=== PATIENT | male | born 1990 | race Caucasian/White ===

== ENCOUNTER 2018-12-29 13:29 | Emergency (ER) | payer SELFPAY ==
--- NOTE | 2018-12-29 14:18 | EDM.PDOC ---
ED HPI GENERAL MEDICAL PROBLEM - General Chief Complaint: General Stated Complaint: MEDICAL VIA [facility] Time Seen by Provider: 12/29/18 14:17 Source of Information: Reports: Patient History Limitations: Reports: No Limitations - History of Present Illness INITIAL COMMENTS - FREE TEXT/NARRATIVE: pt arrived stating [facility] and he did not come out of the room. He was checked by housekeeping and they could not arouse the pt. He had used Meth and he had taking a unkown amount of lyrica. Onset: Today Duration: Hour(s): Location: Reports: Generalized Associated Symptoms: Reports: No Other Symptoms - Related Data Allergies Allergy/AdvReac Type Severity Reaction Status Date / Time No Known Allergies Allergy Verified 12/29/18 13:37 Home Meds: Home Meds NK [No Known Home Meds] 05/16/13 [History] Past Medical History - Past Health History Medical/Surgical History: Denies Medical/Surgical History Social & Family History - Tobacco Use Smoking Status *Q: Current Every Day Smoker Years of Tobacco use: 12 Packs/Tins Daily: 1 - Caffeine Use Caffeine Use: Reports: Coffee, Soda, Tea - Recreational Drug Use Recreational Drug Use: Yes Drug Use in Last 12 Months: Yes Recreational Drug Type: Reports: Marijuana/Hashish, Methamphetamine Recreational Drug Use Frequency: Weekly ED ROS GENERAL - Review of Systems Review Of Systems: See Below Constitutional: Reports: No Symptoms HEENT: Reports: No Symptoms Respiratory: Reports: No Symptoms Cardiovascular: Reports: No Symptoms Endocrine: Reports: No Symptoms GI/Abdominal: Reports: No Symptoms : Reports: No Symptoms Musculoskeletal: Reports: No Symptoms Skin: Reports: No Symptoms Neurological: Reports: No Symptoms Psychiatric: Reports: Anxiety ED EXAM, GENERAL - Physical Exam Exam: See Below Free Text/Narrative:: pt arrived stating that he was feeling slightly dizzy He had taken a lyrica of unknown dose. He did not try to harm himself. Exam Limited By: No Limitations General Appearance: Alert, Anxious, Other (pupils equal and reactuive. ) Ears: Normal External Exam, Normal TMs Nose: Normal Inspection Throat/Mouth: Normal Inspection Head: Atraumatic Neck: Normal Inspection Respiratory/Chest: No Respiratory Distress Cardiovascular: Regular Rate, Rhythm GI/Abdominal: Soft, Non-Tender (Male) Exam: Deferred Rectal (Males) Exam: Deferred Back Exam: Normal Inspection Extremities: Normal Inspection Neurological: Alert, Oriented Psychiatric: Anxious Course - Vital Signs Last Recorded V/S: Last Vital Signs Temp 35.9 C 12/29/18 13:36 Pulse 95 12/29/18 13:36 Resp 22 H 12/29/18 13:31 BP 160/105 H 12/29/18 13:36 Pulse Ox 98 12/29/18 13:31 - Orders/Labs/Meds Labs: Laboratory Tests 12/29/18 12/29/18 12/29/18 Range/Units 14:05 14:05 14:05 WBC 6.7 (4.5-11.0) K/uL RBC 4.44 (4.30-5.90) M/uL Hgb 14.4 (12.0-15.0) g/dL Hct 42.2 (40.0-54.0) % MCV 95 (80-98) fL MCH 32 H (27-31) pg MCHC 34 (32-36) % Plt Count 281 (150-400) K/uL Neut % (Auto) 50 (36-66) % Lymph % (Auto) 36 (24-44) % [place] % (Auto) 11 H (2-6) % Eos % (Auto) 2 (2-4) % Baso % (Auto) 1 (0-1) % Sodium 142 (140-148) mmol/L Potassium 3.5 L (3.6-5.2) mmol/L Chloride 105 (100-108) mmol/L Carbon Dioxide 27 (21-32) mmol/L Anion Gap 13.5 (5.0-14.0) mmol/L BUN 10 (7-18) mg/dL Creatinine 0.8 (0.8-1.3) mg/dL Est Cr Clr Drug Dosing 177.58 mL/min Estimated GFR (MDRD) > 60 (>60) Glucose 102 (74-106) mg/dL Calcium 9.2 (8.5-10.1) mg/dL Total Bilirubin 0.8 D (0.2-1.0) mg/dL AST 22 (15-37) U/L ALT 25 (12-78) U/L Alkaline Phosphatase 67 (46-116) U/L Total Protein 7.3 (6.4-8.2) g/dL Albumin 4.0 (3.4-5.0) g/dL Globulin 3.3 (2.3-3.5) g/dL Albumin/Globulin Ratio 1.2 (1.2-2.2) Urine Color (YELLOW) Urine Appearance (CLEAR) Urine pH (5.0-8.0) Ur Specific [place] (1.008-1.030) Urine Protein (NEGATIVE) mg/dL Urine Glucose (UA) (NEGATIVE) mg/dL Urine Ketones (NEGATIVE) mg/dL Urine Occult Blood (NEGATIVE) Urine Nitrite (NEGATIVE) Urine Bilirubin (NEGATIVE) Urine Urobilinogen (0.2-1.0) EU/dL Ur Leukocyte Esterase (NEGATIVE) Urine RBC (0-5) Urine WBC (0-5) Ur Epithelial Cells Amorphous Sediment Urine Bacteria Urine Mucus Urine Opiates Screen (NEGATIVE) Ur Oxycodone Screen (NEGATIVE) Urine Methadone Screen (NEGATIVE) Ur Propoxyphene Screen (NEGATIVE) Ur Barbiturates Screen (NEGATIVE) Ur Tricyclics Screen (NEGATIVE) Ur Phencyclidine Scrn (NEGATIVE) Ur Amphetamine Screen (NEGATIVE) U Methamphetamines Scrn (NEGATIVE) Urine MDMA Screen (NEGATIVE) U Benzodiazepines Scrn (NEGATIVE) U Cocaine Metab Screen (NEGATIVE) U Marijuana (THC) Screen (NEGATIVE) Ethyl Alcohol < 3 mg/dL 12/29/18 12/29/18 Range/Units 14:21 14:21 WBC (4.5-11.0) K/uL RBC (4.30-5.90) M/uL Hgb (12.0-15.0) g/dL Hct (40.0-54.0) % MCV (80-98) fL MCH (27-31) pg MCHC (32-36) % Plt Count (150-400) K/uL Neut % (Auto) (36-66) % Lymph % (Auto) (24-44) % [place] % (Auto) (2-6) % Eos % (Auto) (2-4) % Baso % (Auto) (0-1) % Sodium (140-148) mmol/L Potassium (3.6-5.2) mmol/L Chloride (100-108) mmol/L Carbon Dioxide (21-32) mmol/L Anion Gap (5.0-14.0) mmol/L BUN (7-18) mg/dL Creatinine (0.8-1.3) mg/dL Est Cr Clr Drug Dosing mL/min Estimated GFR (MDRD) (>60) Glucose (74-106) mg/dL Calcium (8.5-10.1) mg/dL Total Bilirubin (0.2-1.0) mg/dL AST (15-37) U/L ALT (12-78) U/L Alkaline Phosphatase (46-116) U/L Total Protein (6.4-8.2) g/dL Albumin (3.4-5.0) g/dL Globulin (2.3-3.5) g/dL Albumin/Globulin Ratio (1.2-2.2) Urine Color Yellow (YELLOW) Urine Appearance Slightly cloudy A (CLEAR) Urine pH 7.0 (5.0-8.0) Ur Specific [place] 1.015 (1.008-1.030) Urine Protein Negative (NEGATIVE) mg/dL Urine Glucose (UA) Negative (NEGATIVE) mg/dL Urine Ketones Trace H (NEGATIVE) mg/dL Urine Occult Blood Trace-intact H (NEGATIVE) Urine Nitrite Negative (NEGATIVE) Urine Bilirubin Negative (NEGATIVE) Urine Urobilinogen 0.2 (0.2-1.0) EU/dL Ur Leukocyte Esterase Trace H (NEGATIVE) Urine RBC 0-5 (0-5) Urine WBC 5-10 H (0-5) Ur Epithelial Cells Rare Amorphous Sediment Not seen Urine Bacteria Rare Urine Mucus Not seen Urine Opiates Screen Negative (NEGATIVE) Ur Oxycodone Screen Negative (NEGATIVE) Urine Methadone Screen Negative (NEGATIVE) Ur Propoxyphene Screen Negative (NEGATIVE) Ur Barbiturates Screen Negative (NEGATIVE) Ur Tricyclics Screen Negative (NEGATIVE) Ur Phencyclidine Scrn Negative (NEGATIVE) Ur Amphetamine Screen Presumptive positive H (NEGATIVE) U Methamphetamines Scrn Presumptive positive H (NEGATIVE) Urine MDMA Screen Negative (NEGATIVE) U Benzodiazepines Scrn Negative (NEGATIVE) U Cocaine Metab Screen Negative (NEGATIVE) U Marijuana (THC) Screen Negative (NEGATIVE) Ethyl Alcohol mg/dL - Re-Assessments/Exams Free Text/Narrative Re-Assessment/Exam: 12/29/18 14:52 pt had a positive drug screen for meth. His labs otherwise were normal. Departure - Departure Time of Disposition: 14:46 Disposition: Home, Self-Care 01 Condition: Fair Clinical Impression: Methamphetamine abuse, Adverse drug effect - Discharge Information Referrals: PCP,None [Primary Care Provider] - Forms: ED Department Discharge Care Plan Goals: push fluids. reccommend efforts to get off of meth.
== END 2018-12-29 14:54 | disposition home or self-care (01) ==
LOC: JP.ED 13:29
DX: F41.9 Anxiety disorder, unspecified (principal); T43.625A Adverse effect of amphetamines, initial encounter; F17.210 Nicotine dependence, cigarettes, uncomplicated
CPT/HCPCS: 36415; 80053; 80305-QW; 81001; 85025; 99283; 99284; G0480

== ENCOUNTER 2019-02-14 11:48 | Emergency (ER) | payer MEDICAID, OTHER ==
--- NOTE | 2019-02-14 13:06 | EDM.PDOC ---
ED HPI GENERAL MEDICAL PROBLEM - General Chief Complaint: ENT Problem Stated Complaint: L SIDE TOOTH PAIN Time Seen by Provider: 02/14/19 13:06 Source of Information: Reports: Patient History Limitations: Reports: No Limitations - History of Present Illness INITIAL COMMENTS - FREE TEXT/NARRATIVE: 28 years old male patient presented with a chief complaint of left-sided toothache has been going on for 4 or 5 days. Worse today. He lost the left upper tooth 4 days ago and since then pain has been getting worse. No discharge. Denies any fever. Denies any difficulty swallowing. No chest pain shortness breath. No facial swelling. - Related Data Allergies Allergy/AdvReac Type Severity Reaction Status Date / Time No Known Allergies Allergy Verified 02/14/19 13:01 Home Meds: Home Meds NK [No Known Home Meds] 05/16/13 [History] Past Medical History - Past Health History Medical/Surgical History: Denies Medical/Surgical History Social & Family History - Tobacco Use Smoking Status *Q: Current Every Day Smoker Years of Tobacco use: 15 Packs/Tins Daily: 0.5 - Caffeine Use Caffeine Use: Reports: Coffee, Soda, Tea ED ROS GENERAL - Review of Systems Review Of Systems: Comprehensive ROS is negative, except as noted in HPI. ED EXAM, DIZZINESS - Physical Exam Exam: See Below Exam Limited By: No Limitations General Appearance: Alert, WD/WN, No Apparent Distress Throat/Mouth: Normal Inspection, Normal Lips, Normal Teeth, Normal Gums, Normal Oropharynx, Normal Voice, No Airway Compromise, Other (Gum erythema and swelling at tooth #2 and 17. No discharge. No abscess. Dental caries) Head Exam: Atraumatic, Normocephalic Neck: Normal Inspection, Supple, Non-Tender, Full Range of Motion Respiratory/Chest: No Respiratory Distress, Lungs Clear, Normal Breath Sounds, No Accessory Muscle Use, Chest Non-Tender Cardiovascular: Normal Peripheral Pulses, Regular Rate, Rhythm, No Edema, No Gallop, No JVD, No Murmur, No Rub GI/Abdominal: Normal Bowel Sounds, Soft, Non-Tender, No Organomegaly, No Distention, No Abnormal Bruit, No Mass Neurological: Alert, Normal Mood/Affect, Normal Dorsiflexion, CN II-XII Intact, Normal Plantar Flexion, Normal Gait, Normal Reflexes, No Motor/Sensory Deficits , Oriented x 3 Course - Vital Signs Last Recorded V/S: Last Vital Signs Temp 36.7 C 02/14/19 13:05 Pulse 108 H 02/14/19 13:05 Resp 15 02/14/19 13:05 BP 119/81 02/14/19 13:05 Pulse Ox 99 02/14/19 13:05 - Orders/Labs/Meds Meds: Medications Discontinued Medications Generic Name Dose Route Start Last Admin Trade Name Luther PRN Reason Stop Dose Admin Ketorolac Tromethamine 60 mg 02/14/19 13:14 Toradol IM 02/14/19 13:15 ONETIME ONE - Radiology Interpretation Free Text/Narrative:: Patient was seen and examined shortly after arrival. Stable. Given 60 mg IM Toradol. Also started on amoxicillin. Advised to rest, hydration, gargle with salt and water, Orajel, alternate Tylenol and ibuprofen for pain and discomfort , see a dentist as soon as possible, close follow-up with PCP, come back for any concern or any worsening symptom. Patient agrees with the plan. Stable for discharge. Departure - Departure Time of Disposition: 13:18 Disposition: Home, Self-Care 01 Condition: Good Clinical Impression: Toothache, Dental caries - Discharge Information Referrals: PCP,None [Primary Care Provider] - Forms: ED Department Discharge Additional Instructions: Advised to rest, hydration, gargle with salt and water, Orajel, alternate Tylenol and ibuprofen for pain and discomfort, see a dentist as soon as possible , close follow-up with PCP, come back for any concern or any worsening symptom. Sepsis Event Note - Evaluation Sepsis Screening Result: No Definite Risk - Focused Exam Vital Signs: Vital Signs Temp Pulse Resp BP Pulse Ox 02/14/19 13:05 36.7 C 108 H 15 119/81 99 02/14/19 12:57 36.7 C 108 H 15 119/81 99 Date Exam was Performed: 02/14/19 Time Exam was Performed: 13:15 - Assessment/Plan Plan: Advised to rest, hydration, gargle with salt and water, Orajel, alternate Tylenol and ibuprofen for pain and discomfort, see a dentist as soon as possible , close follow-up with PCP, come back for any concern or any worsening symptom.
[2019-02-14] MEDS ORDERED: Ketorolac 60 MG/2 ML SDV IM ONE (13:14)
== END 2019-02-14 13:28 | disposition home or self-care (01) ==
LOC: JP.ED 11:48
DX: K02.9 Dental caries, unspecified (principal); F17.210 Nicotine dependence, cigarettes, uncomplicated
CPT/HCPCS: 96372; 99283; J1885

== ENCOUNTER 2019-06-05 03:45 | Emergency (ER) | payer MEDICAID ==
[2019-06-05] MEDS ORDERED: Clindamycin HCl 150 MG Cap PO ONE (04:36)
--- NOTE | 2019-06-05 04:43 | EDM.PDOC ---
ED HPI GENERAL MEDICAL PROBLEM - General Chief Complaint: ENT Problem Stated Complaint: UPPER LT TOOTH PAIN Time Seen by Provider: 06/05/19 04:10 Source of Information: Reports: Patient History Limitations: Reports: No Limitations - History of Present Illness Onset: Today, Other (Had onset of much worse pain today but the patient has had multiple episodes of dental infections in the past) Duration: Getting Worse Location: Reports: Head, Face Quality: Reports: Sharp, Throbbing Severity: Severe Improves with: Reports: Medication (Been using Tylenol and ibuprofen at home) Worsens with: Reports: None Treatments MEDICAL BILLING COORDINATOR: Reports: Acetaminophen, NSAIDS Left Cheek Pain Score (Numeric/FACES): 8 - Related Data Allergies Allergy/AdvReac Type Severity Reaction Status Date / Time No Known Allergies Allergy Verified 06/05/19 03:59 Home Meds: Home Meds NK [No Known Home Meds] 05/16/13 [History] Past Medical History - Past Health History Medical/Surgical History: Denies Medical/Surgical History HEENT History: Reports: Other (See Below) (Dental decay. Dental infections) Social & Family History - Tobacco Use Smoking Status *Q: Current Every Day Smoker Years of Tobacco use: 15 Packs/Tins Daily: 1 - Caffeine Use Caffeine Use: Reports: Coffee, Soda - Recreational Drug Use Recreational Drug Use: Yes Recreational Drug Type: Reports: Methamphetamine ED ROS ENT - Review of Systems Review Of Systems: See Below Constitutional: Reports: Decreased Appetite. Denies: Fever HEENT: Reports: Other (Left facial pain and swelling) Respiratory: Denies: Shortness of Breath Cardiovascular: Denies: Chest Pain GI/Abdominal: Denies: Abdominal Pain, Nausea, Vomiting Neurological: Denies: Confusion, Trouble Speaking ED EXAM, ENT - Physical Exam Exam: See Below Nose: Normal Inspection Mouth/Throat: Normal Gums, Dental Tenderness, Dry Mucous Membrane, Other ( Extensive caries and broken teeth. Left upper gums markedly erythematous and swollen). No: Throat Pain, Throat Swelling Head: Other (Obvious left facial swelling with loss of left nasolabial fold. Palpation of left cheek does not reveal any well-defined mass or erythema.) Neck: Normal Inspection. No: Lymphadenopathy (R), Lymphadenopathy (L) Respiratory/Chest: No Respiratory Distress, Normal Breath Sounds, No Accessory Muscle Use Psychiatric: Anxious Skin: Warm, Dry Lymphatic: No Adenopathy Course - Vital Signs Text/Narrative:: Given an initial dose of clindamycin here in the emergency department. I strongly emphasized the patient the importance of follow-up with the dentist, that if he doesn't get dental work performed these abscesses will basically be recurrent for him and patient seems to understand this. Last Recorded V/S: Last Vital Signs Temp 35.5 C L 06/05/19 03:56 Pulse 78 06/05/19 03:56 Resp 16 06/05/19 03:56 BP 131/79 06/05/19 03:56 Pulse Ox 97 06/05/19 03:56 - Orders/Labs/Meds Orders: Active Orders 24 hr Category Date Time Status clindamycin HCL [Cleocin] Med 06/05/19 04:36 Once 150 mg PO ONETIME ONE Departure - Departure Time of Disposition: 04:50 Disposition: Home, Self-Care 01 Condition: Good Clinical Impression: Cellulitis of external cheek, left, Dental abscess - Discharge Information Instructions: Dental Abscess, [id number], Cellulitis, Adult, [id number] Referrals: PCP,None [Primary Care Provider] - Additional Instructions: Finish entire 10 days of clindamycin antibiotic. You must see a dentist in order to have your teeth cared for for these infections we'll just continue. Utilize ibuprofen, but no more than 600 mg orally 3 times a day. Take ibuprofen with food. You can utilize up to 4000 mg per day of acetaminophen but be aware that Tylenol No. 3 has acetaminophen in it. Sepsis Event Note - Evaluation Sepsis Screening Result: No Definite Risk - Focused Exam Vital Signs: Vital Signs Temp Pulse Resp BP Pulse Ox 06/05/19 03:56 35.5 C L 78 16 131/79 97 Date Exam was Performed: 06/05/19 Time Exam was Performed: 04:38 - My Orders Last 24 Hours: My Active Orders 06/05/19 04:36 clindamycin HCL [Cleocin] 150 mg PO ONETIME ONE - Assessment/Plan Last 24 Hours: My Active Orders 06/05/19 04:36 clindamycin HCL [Cleocin] 150 mg PO ONETIME ONE
[2019-06-05] MEDS ORDERED: Acetaminophen/Codeine 300-30 MG Tab PO ONE (04:59)
== END 2019-06-05 05:13 | disposition home or self-care (01) ==
LOC: JP.ED 03:45
DX: L03.211 Cellulitis of face (principal); K04.7 Periapical abscess without sinus; F17.210 Nicotine dependence, cigarettes, uncomplicated
CPT/HCPCS: 99282; 99284; A9270

== ENCOUNTER 2019-06-05 12:00 | Emergency (ER) | payer MEDICAID ==
--- NOTE | 2019-06-05 12:52 | EDM.PDOC ---
ED HPI GENERAL MEDICAL PROBLEM - General Chief Complaint: ENT Problem Stated Complaint: TOOTH PAIN AND SWOLLEN FACE Time Seen by Provider: 06/05/19 12:30 Source of Information: Reports: Patient History Limitations: Reports: No Limitations - History of Present Illness INITIAL COMMENTS - FREE TEXT/NARRATIVE: This is a 36-year-old male with history of drug abuse, recurrent tooth infections who presents with concerns of left-sided facial pain and swelling. Reports 2 weeks ago he was diagnosed with a dental abscess. He was prescribed clindamycin but has been intermittently compliant. He has had no follow-up with a dentist. Earlier this morning he came to the ER for worsening pain and swelling on left side of the face. He was discharged with a diagnosis of facial cellulitis and likely put on tooth abscess, instructed to continue his Clinda. He returns now because of significant increase in the swelling since earlier this morning. He has a picture on his cell phone and in fact has significantly increased left facial swelling. He also reports pain up in his cheek going back into his face. - Related Data Allergies Allergy/AdvReac Type Severity Reaction Status Date / Time No Known Allergies Allergy Verified 06/05/19 03:59 Home Meds: Home Meds metroNIDAZOLE [Flagyl] 500 mg PO Q8H 5 Days #15 tab 06/05/19 [Rx] oxyCODONE 5 mg PO Q6H PRN #5 tab 06/05/19 [Rx] Past Medical History - Past Health History Medical/Surgical History: Denies Medical/Surgical History HEENT History: Reports: Other (See Below) Social & Family History - Tobacco Use Smoking Status *Q: Current Every Day Smoker Years of Tobacco use: 15 Packs/Tins Daily: 1 - Caffeine Use Caffeine Use: Reports: Coffee, Soda ED ROS ENT - Review of Systems Review Of Systems: See Below Constitutional: Reports: No Symptoms HEENT: Reports: Dental Pain Respiratory: Reports: No Symptoms Cardiovascular: Reports: No Symptoms Endocrine: Reports: No Symptoms GI/Abdominal: Reports: No Symptoms : Reports: No Symptoms Musculoskeletal: Reports: No Symptoms Skin: Reports: No Symptoms Neurological: Reports: No Symptoms Psychiatric: Reports: No Symptoms Hematologic/Lymphatic: Reports: No Symptoms Immunologic: Reports: No Symptoms ED EXAM, ENT - Physical Exam Exam: See Below Exam Limited By: No Limitations General Appearance: Alert, No Apparent Distress Ears: Normal External Exam Nose: Normal Inspection Mouth/Throat: Other (Tenderness to percussion around left upper molars, no swelling or obvious drainable abscess in the mouth. Uvula is midline. Significant associated left facial swelling.) Head: Atraumatic, Normocephalic Neck: Normal Inspection Respiratory/Chest: Lungs Clear Cardiovascular: Regular Rate, Rhythm GI/Abdominal: Soft, Non-Tender Back: Normal Inspection Extremities: Normal Inspection Neurological: Alert, Oriented Psychiatric: Normal Affect Skin: Warm, Dry Course - Vital Signs Last Recorded V/S: Last Vital Signs Temp 35.6 C L 06/05/19 12:35 Pulse 104 H 06/05/19 12:35 Resp 16 06/05/19 12:35 BP 146/91 H 06/05/19 12:35 Pulse Ox 98 06/05/19 12:35 - Orders/Labs/Meds Orders: Active Orders 24 hr Category Date Time Status Clindamycin Phosphate [Cleocin] 600 mg Med 06/05/19 14:06 Active Sodium Chloride 0.9% [Normal Saline] 50 ml IV ONETIME Iopamidol [Isovue-300 (61%)] Med 06/05/19 13:00 Active 100 ml IV . DIRECTED Sodium Chloride 0.9% [Normal Saline] 80 ml Med 06/05/19 13:00 Active IV ASDIRECTED Sodium Chloride 0.9% [Saline Flush] Med 06/05/19 12:56 Active 10 ml FLUSH ASDIRECTED PRN Medication Orders Sodium Chloride (Normal Saline) 80 mls @ 3 mls/sec IV ASDIRECTED MARIA A Last Admin: 06/05/19 13:15 Dose: 3 mls/sec Clindamycin Phosphate 600 mg/ (Sodium Chloride) 54 mls @ 100 mls/hr IV ONETIME ONE Stop: 06/05/19 14:38 Iopamidol (Isovue-300 (61%)) 100 ml IV . DIRECTED MARIA A Last Admin: 06/05/19 13:15 Dose: 100 ml Sodium Chloride (Saline Flush) 10 ml FLUSH ASDIRECTED PRN PRN Reason: Keep Vein Open Last Admin: 06/05/19 13:14 Dose: 10 ml Admin: 06/05/19 13:05 Dose: 10 ml Labs: Laboratory Tests 06/05/19 Range/Units 13:00 Sodium 139 L (140-148) mmol/L Potassium 3.5 L (3.6-5.2) mmol/L Chloride 102 (100-108) mmol/L Carbon Dioxide 27 (21-32) mmol/L Anion Gap 13.5 (5.0-14.0) mmol/L BUN 11 (7-18) mg/dL Creatinine 0.9 (0.8-1.3) mg/dL Est Cr Clr Drug Dosing 154.00 mL/min Estimated GFR (MDRD) > 60 (>60) Glucose 104 (74-106) mg/dL Calcium 8.8 (8.5-10.1) mg/dL Meds: Medications Generic Name Dose Route Start Last Admin Trade Name Freq PRN Reason Stop Dose Admin Sodium Chloride 80 mls @ 3 mls/sec 06/05/19 13:00 06/05/19 13:15 Normal Saline IV 3 mls/sec ASDIRECTED MARIA A Administration Clindamycin Phosphate 600 mg/ 54 mls @ 100 mls/hr 06/05/19 14:06 Sodium Chloride IV 06/05/19 14:38 ONETIME ONE Iopamidol 100 ml 06/05/19 13:00 06/05/19 13:15 Isovue-300 (61%) IV 100 ml . DIRECTED MARIA A Administration Sodium Chloride 10 ml 06/05/19 12:56 06/05/19 13:14 Saline Flush FLUSH 10 ml ASDIRECTED PRN Administration Keep Vein Open Discontinued Medications Generic Name Dose Route Start Last Admin Trade Name Freq PRN Reason Stop Dose Admin Oxycodone HCl 5 mg 06/05/19 12:59 06/05/19 13:04 Oxycodone PO 06/05/19 13:00 5 mg ONETIME ONE Administration - Re-Assessments/Exams Free Text/Narrative Re-Assessment/Exam: 28-year-old gentleman with history of methamphetamine abuse presents with concerns of left-sided dental pain. On exam he is afebrile with normal vitals, however his significant swelling over the left cheek. No obvious abscess on oral exam. His swelling has significantly increased over the course of the last 8 hours. He is also describing increasing pain. There is been intermittent antibiotic compliance over the last couple weeks, so is not clear if this is antibiotic failure or simply due to noncompliance. Elected to perform a CT of the sinuses which revealed periapical abscess over the left upper molars as well as erosion of the maxilla with surrounding cellulitis. I discussed this case with the on-call oral surgeon for [facility], she felt that he was appropriate outpatient management on Clinda with the addition of Flagyl. Their office will arrange follow-up on Friday. We are giving him a dose of IV clindamycin now per the surgeon's request. He was instructed to return to the ER for any fevers, difficulty swallowing, or breathing. 06/05/19 14:12 Departure - Departure Time of Disposition: 14:29 Disposition: Home, Self-Care 01 Clinical Impression: Periapical abscess - Discharge Information Referrals: PCP,None [Primary Care Provider] - Forms: ED Department Discharge Additional Instructions: It is very important that you take your clindamycin as directed Additionally we have prescribed you another antibiotic to take. Use Tylenol and ibuprofen for pain, the oxycodone can be used to supplement this as needed. An oral surgeon will call you Friday to arrange follow-up. It is very important that you make this appointment. If you are having significantly worsening symptoms or difficulty breathing, swallowing, or high fevers please return to the emergency room. Sepsis Event Note - Evaluation Sepsis Screening Result: No Definite Risk - Focused Exam Vital Signs: Vital Signs Temp Pulse Resp BP Pulse Ox 06/05/19 12:35 35.6 C L 104 H 16 146/91 H 98 06/05/19 12:10 35.6 C L 104 H 16 146/91 H 98 Date Exam was Performed: 06/05/19 Time Exam was Performed: 14:12 - My Orders Last 24 Hours: My Active Orders 06/05/19 12:56 Sodium Chloride 0.9% [Saline Flush] 10 ml FLUSH ASDIRECTED PRN 06/05/19 13:00 Iopamidol [Isovue-300 (61%)] 100 ml IV . DIRECTED Sodium Chloride 0.9% [Normal Saline] 80 ml IV ASDIRECTED 06/05/19 14:06 Clindamycin Phosphate [Cleocin] 600 mg Sodium Chloride 0.9% [Normal Saline] 50 ml IV ONETIME - Assessment/Plan Last 24 Hours: My Active Orders 06/05/19 12:56 Sodium Chloride 0.9% [Saline Flush] 10 ml FLUSH ASDIRECTED PRN 06/05/19 13:00 Iopamidol [Isovue-300 (61%)] 100 ml IV . DIRECTED Sodium Chloride 0.9% [Normal Saline] 80 ml IV ASDIRECTED 06/05/19 14:06 Clindamycin Phosphate [Cleocin] 600 mg Sodium Chloride 0.9% [Normal Saline] 50 ml IV ONETIME
[2019-06-05] MEDS ORDERED: oxyCODONE 5 MG Tab PO ONE (12:59)
[2019-06-05] MEDS ORDERED: Sodium Chloride 0.9% 80 ML IV SCH (13:00)
[2019-06-05] MEDS ORDERED: Iopamidol 612 MG/ML 100 ML Bottle IV SCH (13:00)
[2019-06-05] MEDS: Sodium Chloride 0.9% 10 ML Syringe FLUSH PRN ×2 (13:05→13:14)
--- NOTE | 2019-06-05 13:47 | CRLCT ---
INDICATION: Left facial swelling. Comparison: None Technique : CT face with IV contrast (Isovue-300 100 cc). FINDINGS: Asymmetric marked soft tissue swelling of the left face extending from the inferior periportal soft tissues through the left mandible. There are enlarged left submandibular and upper cervical lymph nodes which are likely reactive. There is no evidence of organized fluid collection within the soft tissues of left face to suggest drainable abscess. No evidence of postseptal extension of inflammation in the left orbit. There is periapical lucency about left maxillary teeth 12 and 13 (series 4, images 40 2-47; series 5, images 30 1-35). There is associated erosive changes and dehiscence of the outer cortex of the left jade maxilla (series 4, image 48). Finding likely represents a periapical abscess with extension into the for full soft tissues. There is a focal small amount of low-attenuation immediately adjacent to the dehiscent cortex (series 3, image 48) measuring approximately 9 x 5 mm which may represent early abscess formation or focal phlegmon. Multiple dental caries. Unerupted left mandibular molar tooth with partial surrounding lucency which may represent periodontal disease. Normal orbits bilaterally. No facial fractures. Mucosal thickening mucous retention cyst of the left maxillary sinus. Mucosal thickening of the bilateral frontal sinuses, left greater right. Remaining visualized paranasal sinuses are clear. Mastoid air cells are clear. Partially visualized intracranial contents are unremarkable. No inflammation within the parapharyngeal fat pads are retropharyngeal space. Normal thickness of epiglottis. Impression : 1. Asymmetric marked soft tissue swelling of the left face extending from the inferior periorbital soft tissues through the left mandible. No evidence of abscess within the soft tissues of left face. 2. Inflammation is likely secondary to periapical abscess about the left maxillary teeth numbers 12 and 13. Associated erosive changes and dehiscence of the outer cortex of the left jade maxilla. Immediately adjacent early abscess or phlegmon formation in the buccal soft tissues normal orbits bilaterally. 3. Enlarged left submandibular and upper cervical lymph nodes which are likely reactive. 4. Mild to moderate sinus disease. 5. No facial fracture Dictated by Matthew Still MD @ 06/05/2019 1:46:58 PM Please note that all CT scans at this facility use dose modulation, iterative reconstruction, and/or weight-based dosing when appropriate to reduce radiation dose to as low as reasonably achievable. Dictated by: Matthew Still MD @ 06/05/2019 13:47:06 (Electronically Signed)
== END 2019-06-05 14:49 | disposition home or self-care (01) ==
LOC: JP.ED 12:00
DX: K04.7 Periapical abscess without sinus (principal); F17.210 Nicotine dependence, cigarettes, uncomplicated
CPT/HCPCS: 36415; 70487; 80048; 96365; 99284; A9270; J3490; J7050; Q9967

== ENCOUNTER 2022-09-30 22:56 | Emergency (ER) | payer MEDICAID | END 2022-10-01 00:11 | disposition home or self-care (01) | LOC: JP.ED 22:56 | DX: K04.7 Periapical abscess without sinus (principal); K02.9 Dental caries, unspecified; F17.210 Nicotine dependence, cigarettes, uncomplicated | CPT/HCPCS: 99282; 99283 ==

== ENCOUNTER 2022-12-06 14:53 | Emergency (ER) | payer MEDICAID | END 2022-12-06 16:16 | disposition home or self-care (01) | LOC: JP.ED 14:53 | DX: K08.89 Other specified disorders of teeth and supporting structures (principal) | CPT/HCPCS: 99282 ==

== ENCOUNTER 2023-10-10 21:32 | Emergency (ER) | payer MEDICAID ==
[2023-10-10] MEDS: traMADol 50 MG Tab PO ONE (22:26)
== END 2023-10-10 22:34 | disposition home or self-care (01) ==
LOC: JP.ED 21:32
DX: K02.9 Dental caries, unspecified (principal); F17.210 Nicotine dependence, cigarettes, uncomplicated; Z79.899 Other long term (current) drug therapy
CPT/HCPCS: 99282; A9270